=== PATIENT | male | born 1975 | race Caucasian/White ===

== ENCOUNTER 2021-09-22 12:36 | Emergency (ER) | payer OTHER, SELFPAY ==
[2021-09-22 12:51] VITALS: BP 154/89; PULSE 88; RESP 18; TEMP 36.4; O2SAT 98; BMI 29.6
--- NOTE | 2021-09-22 13:08 | ECG_ITS ---
[facility] Test Date: 2021-09-22 Pat Name: Sai Young Department: Room: Gender: Male Maintenance Leader: : 1975 Requested By: Lamberto Tamez Order Number: [id number] Sarah MD: Bridgette Johnson M.D. Measurements Intervals [place]ool Rate: 65 P: 62 HI: 147 QRS: 62 QRSD: 89 T: 71 QT: 357 QTc: 371 Interpretive Statements SINUS RHYTHM NONSPECIFIC T-WAVE ABNORMALITY No previous ECG available for comparison Electronically Signed On 09-23-2021 7:27:21 CDT by Bridgette Johnson M.D. [email or web address]
--- NOTE | 2021-09-22 13:08 | XR_ITS ---
WS: [id number] Exam: XR chest 1V portable [id number] Date/Time of Exam: 09/22/2021 1:08 PM Reason For Exam: smokers cough, tingling in hands No priors. The lungs are fully expanded and clear. Cardiomediastinal silhouette appears normal. No pleural effus ions. Calcified granuloma along the right infrahilar region. Regional bony elements are intact. XR/XR chest 1V portable [id number] IMPRESSION: 1. No acute cardiopulmonary finding.
--- NOTE | 2021-09-22 13:09 | XRR_ITS ---
PROCEDURE INFORMATION: Exam: XR Cervical Spine Exam date and time: 09/22/2021 1:26 PM Age: 46 years old Clinical indication: Radicular pain (radiculopathy); Cervical region. Tingling in hands. TECHNIQUE: Imaging protocol: XR of the cervical spine. Views: 4 or 5 views. COMPARISON: No relevant prior studies available. FINDINGS: Bones/joints: The atlantoaxial interval and craniocervical junction are unremarkable. The cervical lordosis is maintained. No acute fracture is identified. Minimal degenerative disc disease is identified. Soft tissues: No prevertebral soft tissue swelling is seen. XR/XR cervical spine 4-5V [id number] IMPRESSION: 1. No acute fracture is identified. 2. Consider MRI to further assess if clinically warranted.
--- NOTE | 2021-09-22 13:10 | W.ED.DIZZY ---
Documented by User: ANA Loco 09/22/21 16:43 HPI - Dizziness General: Chief Complaint: Dizziness Stated Complaint: numbness & tingling in fingers Time Seen by Provider: 09/22/21 13:03 History of Present Illness: HPI Narrative: Patient presents with intermittent tingling in his hands arms over the last 2 months. 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 Denies any neck problems that he is aware of. Does have a history of hypertension. Was seen at the [facility] and they sent him over here for further work-up. Patient is also a smoker. Patient denies any chest pain. Does have what he calls smoker shortness of breath. Denies any history of back problems. Does occasionally have some Raynaud's-like symptoms he says with cold weather. Patient said he had occasional dizziness 2. Denies any chest pain or pressure with exertion. Denies balance problems. Associated symptoms: Denies chest pain, chills, headache(s), nausea or vomiting Review of Systems Const: Denies: fever(s), chills or body aches Eyes: Denies: eye discomfort ENMT: Denies: throat pain Card: Denies: chest pain Resp: Denies: dyspnea GI: Denies: abdominal pain, nausea or vomiting Musc: Reports: other (Patient I am tingling in his hands sporadically over the last 2 months or s); Denies: neck pain or back pain Skin/Breast: Denies: rash Neuro: Reports: dizziness; Denies: headache(s) Psych: Denies: depression or suicidal ideation Physical Exam Const: COMMON NORMALS: no acute distress, patient oriented x3 and alert HENMT: COMMON NORMALS: normocephalic, external ears normal and TM's normal bilaterally HEAD & SCALP: normocephalic EXTERNAL EAR: Yes external ears normal TYMPANIC MEMBRANE: TM's normal bilaterally Eye: COMMON NORMALS: EOMs intact bilaterally Neck/C-Spine: COMMON NORMALS: no JVD Resp: COMMON NORMALS: normal respiratory effort and No use of accessory muscles Cardio: COMMON NORMALS: no JVD GI: INSPECTION: Yes normal to inspection Extremity: COMMON NORMALS: normal to inspection and full ROM OTHER: Upper extremities without any vascular compromise. Hands are slightly red. Does have slight clubbing of the nails. Pulses are strong and cap refills normal. Neuro: COMMON NORMALS: patient oriented x3 SENSORIUM/ORIENTATION: Yes alert Psych: COMMON NORMALS: mental status grossly normal Skin: COMMON NORMALS: no rashes or lesions noted GENERAL SKIN EXAM: no rashes or lesions noted Course Vital Signs: Vital signs: Vital Signs Temperature 97.5 F L 09/22/21 12:51 Pulse Rate 88 09/22/21 12:51 Respiratory Rate 18 09/22/21 12:51 Blood Pressure 154/89 09/22/21 12:51 Pulse Oximetry 98 09/22/21 12:51 MDM - Dizziness Medical Decision Making Patient presents with a sporadic hand tingling and dizziness over the last 2 to 3 months. 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 [facility]. Patient denies any shortness of breath or chest pain associated with this.. Has not taking medications. Patient is a smoker. Laboratory studies and chest x-ray was normal and including EKG. [facility] Lab Data : 09/22/21 13:13 09/22/21 13:13 Radiology Impressions Chest X-Ray 09/22/21 13:08 IMPRESSION: 1. No acute cardiopulmonary finding. Cervical Spine X-Ray 09/22/21 13:09 IMPRESSION: 1. No acute fracture is identified. 2. Consider MRI to further assess if clinically warranted. Laboratory Results WBC 5.3 10^3/uL (4.0-10.0) 09/22/21 13:13 RBC 5.01 10^6/uL (4.1-5.3) 09/22/21 13:13 Hgb 16.0 g/dL (11.7-16.6) 09/22/21 13:13 Hct 47.7 % (42.0-52.0) 09/22/21 13:13 MCV 95.2 fl (80-94) H 09/22/21 13:13 MCH 31.9 pg (28.0-34.0) 09/22/21 13:13 MCHC 33.5 g/dL (30.0-36.0) 09/22/21 13:13 RDW 12.9 % (12.1-15.1) 09/22/21 13:13 Plt Count 154 10^3/cmm (130-400) 09/22/21 13:13 MPV 12.3 fL (7.4-10.4) H 09/22/21 13:13 Neut % (Auto) 67.0 % 09/22/21 13:13 Lymph % (Auto) 19.9 % 09/22/21 13:13 Mer[place] % (Auto) 11.0 % 09/22/21 13:13 Eos % (Auto) 0.9 % 09/22/21 13:13 Baso % (Auto) 0.6 % 09/22/21 13:13 Neut # (Auto) 3.54 10^3/uL (1.8-7.7) 09/22/21 13:13 Lymph # (Auto) 1.1 10^3/uL (0.8-4.8) 09/22/21 13:13 Mer[place] # (Auto) 0.6 10^3/uL (0.2-0.9) 09/22/21 13:13 Eos # (Auto) 0.1 10^3/uL (0.0-0.8) 09/22/21 13:13 Baso # (Auto) 0.0 10^3/uL (0.0-0.1) 09/22/21 13:13 Nucleated RBC % (auto) 0 % 09/22/21 13:13 Nucleated RBCs # 0.0 /100WBC 09/22/21 13:13 Sodium 141 mmol/L (136-145) 09/22/21 13:13 Potassium 4.0 mmol/L (3.5-5.1) 09/22/21 13:13 Chloride 101 mmol/L (98-107) 09/22/21 13:13 Carbon Dioxide 27 mmol/L (22-29) 09/22/21 13:13 Anion Gap 17.0 (5-19) 09/22/21 13:13 BUN 20 mg/dL (6-20) 09/22/21 13:13 Creatinine 0.8 mg/dL (0.7-1.2) 09/22/21 13:13 GFR Calculation 104.5 mL/min (90-130) 09/22/21 13:13 Glucose 101 mg/dL (65-115) 09/22/21 13:13 Calculated Osmolality 295 mOsm/kg (285-295) 09/22/21 13:13 Calcium 9.1 mg/dL (8.5-10.5) 09/22/21 13:13 C-Reactive Protein 3.0 mg/L (0.0-4.9) 09/22/21 13:13 Discharge Plan Discharge Patient Disposition: Home Clinical Impression: Dizziness, Tingling of upper extremity Condition: Stable Discharge Orders: Discharge ED (Routine); Ordered 09/22/21 Ordered By: Lamberto Tamez Referrals: Loreto Flannery FNP [Primary Care Provider] - Discharge Diet: Usual diet Discharge Activity: Resume usual activity Patient Instructions: Dizziness (ED) Activity Restrictions/Additional Instructions: [facility] Discussed them further testing as we discussed here. If any worsening symptoms please return here or see your primary care provider. Coding Level of Care Code ED Teletypewriter Installer for Chg Fwd Exam Comprehensive Documented by User: Aldo Amador DO 09/22/21 16:44 HPI - Dizziness General: Chief Complaint: Dizziness Stated Complaint: numbness & tingling in fingers Time Seen by Provider: 09/22/21 13:03 Course Vital Signs: Vital signs: Vital Signs Temperature 97.5 F L 09/22/21 12:51 Pulse Rate 88 09/22/21 12:51 Respiratory Rate 18 09/22/21 12:51 Blood Pressure 154/89 09/22/21 12:51 Pulse Oximetry 98 09/22/21 12:51 MDM - Dizziness Medical Decision Making Patient presents with a sporadic hand tingling and dizziness over the last 2 to 3 months. 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 [facility]. Patient denies any shortness of breath or chest pain associated with this.. Has not taking medications. Patient is a smoker. Laboratory studies and chest x-ray was normal and including EKG. Patient was [facility] Chart reviewed and patient discussed with midlevel. Agree with assessment and plan. Lab Data : 09/22/21 13:13 09/22/21 13:13 Radiology Impressions Chest X-Ray 09/22/21 13:08 IMPRESSION: 1. No acute cardiopulmonary finding. Cervical Spine X-Ray 09/22/21 13:09 IMPRESSION: 1. No acute fracture is identified. 2. Consider MRI to further assess if clinically warranted. Laboratory Results WBC 5.3 10^3/uL (4.0-10.0) 09/22/21 13:13 RBC 5.01 10^6/uL (4.1-5.3) 09/22/21 13:13 Hgb 16.0 g/dL (11.7-16.6) 09/22/21 13:13 Hct 47.7 % (42.0-52.0) 09/22/21 13:13 MCV 95.2 fl (80-94) H 09/22/21 13:13 MCH 31.9 pg (28.0-34.0) 09/22/21 13:13 MCHC 33.5 g/dL (30.0-36.0) 09/22/21 13:13 RDW 12.9 % (12.1-15.1) 09/22/21 13:13 Plt Count 154 10^3/cmm (130-400) 09/22/21 13:13 MPV 12.3 fL (7.4-10.4) H 09/22/21 13:13 Neut % (Auto) 67.0 % 09/22/21 13:13 Lymph % (Auto) 19.9 % 09/22/21 13:13 Mer[place] % (Auto) 11.0 % 09/22/21 13:13 Eos % (Auto) 0.9 % 09/22/21 13:13 Baso % (Auto) 0.6 % 09/22/21 13:13 Neut # (Auto) 3.54 10^3/uL (1.8-7.7) 09/22/21 13:13 Lymph # (Auto) 1.1 10^3/uL (0.8-4.8) 09/22/21 13:13 Mer[place] # (Auto) 0.6 10^3/uL (0.2-0.9) 09/22/21 13:13 Eos # (Auto) 0.1 10^3/uL (0.0-0.8) 09/22/21 13:13 Baso # (Auto) 0.0 10^3/uL (0.0-0.1) 09/22/21 13:13 Nucleated RBC % (auto) 0 % 09/22/21 13:13 Nucleated RBCs # 0.0 /100WBC 09/22/21 13:13 Sodium 141 mmol/L (136-145) 09/22/21 13:13 Potassium 4.0 mmol/L (3.5-5.1) 09/22/21 13:13 Chloride 101 mmol/L (98-107) 09/22/21 13:13 Carbon Dioxide 27 mmol/L (22-29) 09/22/21 13:13 Anion Gap 17.0 (5-19) 09/22/21 13:13 BUN 20 mg/dL (6-20) 09/22/21 13:13 Creatinine 0.8 mg/dL (0.7-1.2) 09/22/21 13:13 GFR Calculation 104.5 mL/min (90-130) 09/22/21 13:13 Glucose 101 mg/dL (65-115) 09/22/21 13:13 Calculated Osmolality 295 mOsm/kg (285-295) 09/22/21 13:13 Calcium 9.1 mg/dL (8.5-10.5) 09/22/21 13:13 C-Reactive Protein 3.0 mg/L (0.0-4.9) 09/22/21 13:13 Discharge Plan Discharge Patient Disposition: Home Clinical Impression: Dizziness, Tingling of upper extremity Condition: Stable Discharge Orders: Discharge ED (Routine); Ordered 09/22/21 Ordered By: Lamberto Tamez Referrals: Loreto Flannery, DEGREE CLERK [Primary Care Provider] - Discharge Diet: Usual diet Discharge Activity: Resume usual activity Patient Instructions: Dizziness (ED) Activity Restrictions/Additional Instructions: [facility] Discussed them further testing as we discussed here. If any worsening symptoms please return here or see your primary care provider. Coding Level of Care Code ED Teletypewriter Installer for Chg Fwd Exam Comprehensive
[2021-09-22 13:23] LABS: Basophils % 0.6 %; Eosinophils # 0.1 10^3/uL (0.0-0.8); Eosinophils % 0.9 %; Hematocrit 47.7 % (42.0-52.0); Lymphocytes # 1.1 10^3/uL (0.8-4.8); Lymphocytes % 19.9 %; Mean Corpuscular HGB Conc 33.5 g/dL (30.0-36.0); Mean Corpuscular Hemoglobin 31.9 pg (28.0-34.0); Mean Corpuscular Volume 95.2 fl (80-94); Mean Platelet Volume 12.3 fL (7.4-10.4); Monocytes # 0.6 10^3/uL (0.2-0.9); Neutrophils # 3.54 10^3/uL (1.8-7.7); Nucleated Red Blood Cells % 0 %; Platelet Count 154 10^3/cmm (130-400); Red Blood Count 5.01 10^6/uL (4.1-5.3); Red Cell Distribution Width 12.9 % (12.1-15.1); White Blood Count 5.3 10^3/uL (4.0-10.0)
[2021-09-22 13:46] LABS: Slide Review Slide Review Perform
[2021-09-22 13:51] LABS: Blood Urea Nitrogen 20 mg/dL (6-20); Calcium 9.1 mg/dL (8.5-10.5); Carbon Dioxide 27 mmol/L (22-29); Chloride 101 mmol/L (98-107); Glomerular Filtration Rate 104.5 mL/min (90-130); Glucose 101 mg/dL (65-115); Osmolality Calculated 295 mOsm/kg (285-295); Sodium 141 mmol/L (136-145)
== END 2021-09-22 14:42 | disposition home or self-care (01) ==
PROVIDERS: Emergency Provider Nurse Practitioner Family; PCP Nurse Practitioner
DX: R42 Dizziness and giddiness (principal); R20.2 Paresthesia of skin
CPT/HCPCS: 71045; 72050; 80048; 85025; 86140; 93005; 99283